=== PATIENT | male | born 1980 | race Caucasian/White ===

== ENCOUNTER 2021-02-27 18:18 | Emergency (ER) | payer OTHER ==
[2021-02-27 18:38] VITALS: BP 139/89; PULSE 76; TEMP 98.4; BMI 37.5
[2021-02-27] MEDS ORDERED: KETOROLAC TROMETHAMINE 60 MG/2 ML VIAL IM ONE (19:48)
[2021-02-27] MEDS ORDERED: METHOCARBAMOL 500 MG TABLET PO ONE (19:52)
[2021-02-27] MEDS ORDERED: ALBUTEROL SO4 HFA INHALER IH ONE (19:53)
[2021-03-03 05:09] LABS: SARS-CoV-2 NAA Detected (Not Detected)
== END 2021-02-28 00:20 ==
LOC: JER 18:18
PROC: 3E0233Z Introduction of Anti-inflammatory into Muscle, Percutaneous Approach (ICD-10-PCS; principal; 2021-02-27)
PROC: 3E0F7GC Introduction of Other Therapeutic Substance into Respiratory Tract, Via Natural or Artificial Opening (ICD-10-PCS; 2021-02-27)
DX: M54.9 Dorsalgia, unspecified (principal); J06.9 Acute upper respiratory infection, unspecified
CPT/HCPCS: 71046-TC-FY; 72070-TC-FY; 99284-25; C9803; U0003; U0005